=== PATIENT | male | born 1975 | race Caucasian/White ===

== ENCOUNTER 2019-01-29 14:51 | Emergency (ER) | payer BC ==
[~2019-01-29] VITALS: Ht 187.9 cm; Wt 108.9 kg
[2019-01-29] MEDS ORDERED: PREDNISONE20 M1 PO (15:56)
[2019-01-29] MEDS ORDERED: FLONASE ALLERG9.9 ML NAS (15:56)
[2019-01-29] MEDS ORDERED: AUGMENTIN 875-875 MG PO (15:56)
[2019-01-29] MEDS ORDERED: ZYRTEC10 MG PO (15:56)
[2019-01-29] MEDS ORDERED: TESSALON PERLE100 MG PO (15:56)
== END 2019-01-29 16:11 | disposition home or self-care (01) ==
LOC: ED 14:51
DX: J01.00 Acute maxillary sinusitis, unspecified (principal); R19.7 Diarrhea, unspecified; R53.83 Other fatigue; R61 Generalized hyperhidrosis; F17.210 Nicotine dependence, cigarettes, uncomplicated